=== PATIENT | male | born 1940 | race Caucasian/White ===

== ENCOUNTER 2021-12-31 09:42 | Outpatient (CLI) | payer MEDICARE, OTHER ==
[2021-12-31 19:54] LABS: SARS-CoV-2 PCR by NAA Not Detected (NotDetected)
== END 2021-12-31 09:43 | disposition home or self-care (01) ==
LOC: CSHLAB 09:42
PROVIDERS: ATTEND Specialist
DX: Z20.822 Contact with and (suspected) exposure to COVID-19 (principal); K22.5 Diverticulum of esophagus, acquired
CPT/HCPCS: U0003; U0005